=== PATIENT | male | born 1995 | race Caucasian/White ===

== ENCOUNTER → 2017-05-08 | Outpatient (CLI) | payer BC ==
[2017-05-08 21:48] LABS: Basophils % (A) 0 %; Eosinophils % (A) 1 %; HCT 46.7 % (39.0-53.0); HGB 15.6 gm/dL (13.0-17.5); Lymphocytes # (A) 0.9 k/uL (1.0-4.8); Lymphocytes % (A) 18 %; MCH 31.9 pg (25.0-35.0); MCHC 33.4 g/dL (31.0-37.0); MCV 95.4 fL (80.0-100.0); Mean Platelet Volume 8.4; Monocytes # (A) 0.6 k/uL (0-1.0); Monocytes % (A) 13 %; Neutrophils # (A) 3.3 k/uL (1.3-7.7); Neutrophils % (A) 67 %; Platelet Count 219 k/uL (150-450); WBC 4.9 k/uL (3.8-10.6)
[2017-05-08 21:59] LABS: ALT 136 U/L (21-72); AST 86 U/L (17-59); Albumin 4.5 g/dL (3.5-5.0); Alkaline Phosphatase 53 U/L (38-126); Amylase 46 U/L (30-110); Anion Gap 14 mmol/L; Blood Urea Nitrogen 15 mg/dL (9-20); Calcium 9.1 mg/dL (8.4-10.2); Carbon Dioxide 24 mmol/L (22-30); Chloride 101 mmol/L (98-107); Cholesterol 152 mg/dL (<200); Glucose 90 mg/dL (74-99); HDL Cholesterol 40 mg/dL (40-60); LDL Cholesterol,Calculated 97 mg/dL (0-99); Lipase 25 U/L (23-300); Potassium 3.6 mmol/L (3.5-5.1); Sodium 139 mmol/L (137-145); Total Bilirubin 0.8 mg/dL (0.2-1.3); Total Protein 7.1 g/dL (6.3-8.2); Triglycerides 77 mg/dL (<150)
[2017-05-08 22:11] LABS: T4, Free (Free Thyroxine) 1.53 ng/dL (0.78-2.19)
== END | disposition home or self-care (01) ==
LOC: MMGSC 15:36
PROVIDERS: ATTEND Family Medicine
DX: Z00.00 Encounter for general adult medical examination without abnormal findings (principal); R10.9 Unspecified abdominal pain; R11.10 Vomiting, unspecified; R63.5 Abnormal weight gain
CPT/HCPCS: 36415; 80053; 80061; 80074; 82150; 83690; 84439; 84443; 85025

== ENCOUNTER → 2017-05-12 | Outpatient (CLI) | payer BC ==
--- NOTE | 2017-05-12 11:08 | FL ---
EXAMINATION: Upper GI examination DATE: 05/12/2017 CLINICAL INDICATION: 21-year-old male with frequent vomiting, diarrhea, and reflux COMPARISON: None Total Fluoroscopy Time: 1.21 minutes Total images: 42. Radiation dose was decreased by primarily utilizing last image hold save screens. FINDINGS: The esophagus has a normal course, caliber, motility and mucosa. There is a small sliding hiatal hernia demonstrated. Spontaneous gastroesophageal reflux is seen with refluxing contrast extending up to the thoracic inle t. Reflux could not be reproduced with Valsalva and positional maneuvers. Assessment of the stomach is slightly limited due to suboptimal coating. Allowing for this limitation , no persistent filling defect is demonstrated. Some of the images suggest mild fold thickening along the gastric fundus. The duodenum appears within normal limits. IMPRESSION: 1. Small sliding hiatal hernia with spontaneous gastroesophageal reflux up to the thoracic inlet. 2. Somewhat poor coating of the stomach limiting its assessment. There seems to be mild fold thickeni ng along the gastric fundus which could reflect mild chronic gastritis.
== END | disposition home or self-care (01) ==
LOC: RADFLMAIN 08:57
PROVIDERS: ATTEND Family Medicine
DX: K44.9 Diaphragmatic hernia without obstruction or gangrene (principal); K21.9 Gastro-esophageal reflux disease without esophagitis
CPT/HCPCS: 74246

== ENCOUNTER → 2023-02-28 | Outpatient (CLI) | payer BC ==
[2023-02-28 23:09] LABS: Basophils # (A) 0.03 X 10*3/uL (0.00-0.10); Basophils % (A) 0.6 %; Eosinophils # (A) 0.14 X 10*3/uL (0.04-0.35); Eosinophils % (A) 2.7 %; HCT 47.3 % (39.6-50.0); HGB 15.8 g/dL (13.0-17.0); Lymphocytes # (A) 2.07 X 10*3/uL (0.90-5.00); Lymphocytes % (A) 39.6 %; MCH 31.7 pg (27.0-32.0); MCHC 33.4 g/dL (32.0-37.0); MCV 94.8 FL (80.0-97.0); Mean Platelet Volume 11.3 FL (9.5-12.2); Monocytes # (A) 0.54 X 10*3/uL (0.20-1.00); Monocytes % (A) 10.3 %; NRBC Per 100 WBC 0 X 10*3/uL (0.00-0.01); Neutrophils # (A) 2.42 X 10*3/uL (1.80-7.70); Neutrophils % (A) 46.2 %; Platelet Count 292 X 10*3/uL (140-440); RBC 4.99 X 10*6/uL (4.40-5.60); WBC 5.23 X 10*3/uL (4.50-10.00)
[2023-03-01 13:19] LABS: ALT 63 U/L (10-49); AST 31 U/L (14-35); Albumin 4.7 g/dL (3.8-4.9); Albumin/Globulin Ratio 2.35 Ratio (1.60-3.17); Alkaline Phosphatase 57 U/L (41-126); BUN/Creat Ratio 11.44 Ratio (12.00-20.00); Blood Urea Nitrogen 10.3 mg/dL (9.0-27.0); Calcium 9.8 mg/dL (8.7-10.3); Carbon Dioxide 23.5 mmol/L (21.6-31.8); Chloride 102 mmol/L (96-109); Chol/HDL Ratio 3.95 Ratio; Glucose 92 mg/dL (70-110); LDL Cholesterol,Calculated 109.2 mg/dL (0.0-131.0); Potassium 4.6 mmol/L (3.5-5.5); Sodium 138 mmol/L (135-145); Total Bilirubin 0.5 mg/dL (0.3-1.2); Total Protein 6.7 g/dL (6.2-8.2)
== END | disposition home or self-care (01) ==
LOC: LABWHC1 09:34
PROVIDERS: ATTEND Family Medicine
DX: I26.99 Other pulmonary embolism without acute cor pulmonale (principal)
CPT/HCPCS: 36415; 80053; 80061; 84443; 85025